=== PATIENT | female | born 1955 | race Caucasian/White ===

== ENCOUNTER 2018-01-30 12:29 | Emergency (ER) | payer MEDICARE, OTHER ==
[~2018-01-30 12:29] MED LIST: Sterile Water Irrigation 250 ML BOT ONE
[2018-01-30] MEDS ORDERED: Lidocaine 1% 20 ML MDV ONE (12:48)
[2018-01-30] MEDS ORDERED: Cephalexin 500 MG CAP ONE (13:02)
[2018-01-30] MEDS ORDERED: Cephalexin 250 MG CAP ONE (13:02)
== END 2018-01-30 13:11 | disposition home or self-care (01) ==
LOC: MADERS 12:29
DX: L03.312 Cellulitis of back [any part except buttock and flank] (principal); E11.9 Type 2 diabetes mellitus without complications; E05.90 Thyrotoxicosis, unspecified without thyrotoxic crisis or storm; E78.5 Hyperlipidemia, unspecified; I10 Essential (primary) hypertension; Z87.891 Personal history of nicotine dependence
CPT/HCPCS: 99284; J2001